=== PATIENT | female | born 1995 | race Caucasian/White ===

== ENCOUNTER 2017-02-23 18:50 | Emergency (ER) | payer MEDICAID, OTHER ==
[~2017-02-23] VITALS: Ht 182.9 cm; Wt 120.0 kg
[~2017-02-23 18:50] MED LIST: METR-1 PO
[2017-02-23 18:53] VITALS: BP 116/66; PULSE 88; RESP 14; TEMP 98.7; O2SAT 95
[2017-02-23] MEDS ORDERED: SODIUM CHLOR 0.9% 1000 ML INJ 1,000 ML IV SCH (20:14)
[2017-02-23] MEDS ORDERED: ONDANSETRON HCL 4 MG/2 ML VIAL IVP ONE (20:15)
[2017-02-23] MEDS ORDERED: SODIUM CHLOR 0.9% 1000 ML INJ 1,000 ML IV ONE (20:15)
[2017-02-23] MEDS ORDERED: SODIUM CHLORIDE 0.9% FLUSH 10 ML FLUSH IV FLUSH PRN (20:15)
[2017-02-23] MEDS ORDERED: FAMOTIDINE 20 MG/2 ML VIAL IV PUSH ONE (20:15)
--- NOTE | 2017-02-23 20:31 | PD ---
HPI Chief Complaint: GI Complaint Time Seen by Provider: 20:12 Travel History International Travel<30 days: No Contact w/Intl Traveler<30days: No Traveled to known affect area: No History of Present Illness HPI Patient is a 21-year-old female who presents to emergency room for evaluation of nausea vomiting and diarrhea. She reports that she has been symptomatic for the past 3 days, she reports that she has not been able to keep anything down. Patient reports no sick contacts, denies any recent travels. Patient denies any fever or chills. Patient reports that her abdomen feels crampy, reports no pain at this time. PFSH Past Medical History Medical History: Denies Significant Hx Diminished Hearing: No ?: Not LMP: implant in [facility] states was 4 years ago Past Surgical History Surgical History: No Previous Surgery Social History Alcohol Use: No Tobacco Use: No Substance Use: No Allergies-Medications (Allergen,Severity, Reaction): Coded Allergies: No Known Allergies (Verified Allergy, Unknown, 02/23/17) Reported Meds & Prescriptions Reported Meds & Active Scripts Active Flagyl (Metronidazole) 500 Mg Tab 500 Mg PO BID 7 Days Review of Systems General / Constitutional: No: Fever Eyes: No: Visual changes HENT: No: Headaches Cardiovascular: No: Chest Pain or Discomfort Respiratory: No: Shortness of Breath Gastrointestinal: Positive: Nausea, Vomiting, Diarrhea, No: Abdominal Pain Genitourinary: No: Dysuria Musculoskeletal: No: Pain Skin: No Rash Neurologic: No: Weakness Psychiatric: No: Depression Endocrine: No: Polydipsia Hematologic/Lymphatic: No: Easy Bruising Physical Exam Narrative GENERAL: Mild distress SKIN: Focused skin assessment warm/dry. HEAD: Atraumatic. Normocephalic. EYES: Pupils equal and round. No scleral icterus. No injection or drainage. ENT: No nasal bleeding or discharge. Mucous membranes pink and moist. NECK: Trachea midline. No JVD. CARDIOVASCULAR: Regular rate and rhythm. No murmur appreciated. RESPIRATORY: No accessory muscle use. Clear to auscultation. Breath sounds equal bilaterally. GASTROINTESTINAL: Abdomen soft, non-tender, nondistended. Hepatic and splenic margins not palpable. MUSCULOSKELETAL: No obvious deformities. No clubbing. No cyanosis. No edema. NEUROLOGICAL: Awake and alert. No obvious cranial nerve deficits. Motor grossly within normal limits. Normal speech. PSYCHIATRIC: Appropriate mood and affect; insight and judgment normal. Data Data Last Documented VS Vital Signs Date Time Temp Pulse Resp B/P (MAP) Pulse Ox O2 Delivery O2 Flow Rate FiO2 02/23/17 21:08 18 99 Room Air 02/23/17 18:53 98.7 88 Orders Orders Complete Blood Count With Diff (02/23/17 20:14) Comprehensive Metabolic Panel (02/23/17 20:14) Lipase (02/23/17 20:14) Prothrombin Time / Inr (Pt) (02/23/17 20:14) Act Partial Throm Time (Ptt) (02/23/17 20:14) Urinalysis - C+S If Indicated (02/23/17 20:14) Iv Access Insert/Monitor (02/23/17 20:14) Ecg Monitoring (02/23/17 20:14) Oximetry (02/23/17 20:14) Ondansetron Inj (Zofran Inj) (02/23/17 20:15) Sodium Chlor 0.9% 1000 Ml Inj (Ns 1000 M (02/23/17 20:14) Sodium Chloride 0.9% Flush (Ns Flush) (02/23/17 20:15) Famotidine Inj (Pepcid Inj) (02/23/17 20:15) Ed Urine Pregnancytest Poc (02/23/17 20:14) Sodium Chlor 0.9% 1000 Ml Inj (Ns 1000 M (02/23/17 20:15) Labs Laboratory Tests Test 02/23/17 19:30 02/23/17 21:39 White Blood Count 11.0 TH/MM3 Red Blood Count 4.78 MIL/MM3 Hemoglobin 13.7 GM/DL Hematocrit 41.0 % Mean Corpuscular Volume 85.9 FL Mean Corpuscular Hemoglobin 28.6 PG Mean Corpuscular Hemoglobin Concent 33.3 % Red Cell Distribution Width 14.1 % Platelet Count 205 TH/MM3 Mean Platelet Volume 8.9 FL Neutrophils (%) (Auto) 62.5 % Lymphocytes (%) (Auto) 27.5 % Monocytes (%) (Auto) 5.0 % Eosinophils (%) (Auto) 4.5 % Basophils (%) (Auto) 0.5 % Neutrophils # (Auto) 6.9 TH/MM3 Lymphocytes # (Auto) 3.0 TH/MM3 Monocytes # (Auto) 0.6 TH/MM3 Eosinophils # (Auto) 0.5 TH/MM3 Basophils # (Auto) 0.1 TH/MM3 CBC Comment DIFF FINAL Differential Comment Prothrombin Time 10.9 SEC Prothromb Time International Ratio 1.1 RATIO Activated Partial Thromboplast Time 29.0 SEC Blood Urea Nitrogen 13 MG/DL Creatinine 0.76 MG/DL Random Glucose 90 MG/DL Total Protein 7.2 GM/DL Albumin 3.6 GM/DL Calcium Level 8.9 MG/DL Alkaline Phosphatase 120 U/L Aspartate Amino Transf (AST/SGOT) 59 U/L Alanine Aminotransferase (ALT/SGPT) 88 U/L Total Bilirubin 0.4 MG/DL Sodium Level 140 MEQ/L Potassium Level 4.0 MEQ/L Chloride Level 106 MEQ/L Carbon Dioxide Level 28.3 MEQ/L Anion Gap 6 MEQ/L Estimat Glomerular Filtration Rate 97 ML/MIN Lipase 107 U/L Urine Color YELLOW Urine Turbidity CLEAR Urine pH 6.0 Urine Specific [place] 1.033 Urine Protein TRACE mg/dL Urine Glucose (UA) NEG mg/dL Urine Ketones 10 mg/dL Urine Occult Blood NEG Urine Nitrite NEG Urine Bilirubin NEG Urine Urobilinogen 2.0 MG/DL Urine Leukocyte Esterase SMALL Urine RBC LESS THAN 1 /hpf Urine WBC 2 /hpf Urine Squamous Epithelial Cells 4 /hpf Urine Bacteria OCC /hpf Urine Mucus FEW /lpf Microscopic Urinalysis Comment CULT NOT INDICATED MDM Medical Decision Making Medical Screen Exam Complete: Yes Emergency Medical Condition: Yes Medical Record Reviewed: Yes Interpretation(s) Vital Signs Date Time Temp Pulse Resp B/P (MAP) Pulse Ox O2 Delivery O2 Flow Rate FiO2 02/23/17 18:53 98.7 88 14 116/66 (83) 95 Differential Diagnosis Gastritis, gastroenteritis, viral syndrome Narrative Course During the course of the patients emergency department visit, the patients history, examination, and differential diagnosis were reviewed with the patient. The patient was placed on a cardiac cath tech with oximetry and frequent blood pressure monitoring. The patient had a 20-gauge IV access obtained and blood work sent for analysis. The patient was initially provided IV fluids as well as Zofran The patients laboratory studies were reviewed and remarkable for: Laboratory Tests Test 02/23/17 19:30 02/23/17 21:39 White Blood Count 11.0 TH/MM3 (4.0-11.0) Red Blood Count 4.78 MIL/MM3 (4.00-5.30) Hemoglobin 13.7 GM/DL (11.6-15.3) Hematocrit 41.0 % (35.0-46.0) Mean Corpuscular Volume 85.9 FL (80.0-100.0) Mean Corpuscular Hemoglobin 28.6 PG (27.0-34.0) Mean Corpuscular Hemoglobin Concent 33.3 % (32.0-36.0) Red Cell Distribution Width 14.1 % (11.6-17.2) Platelet Count 205 TH/MM3 (150-450) Mean Platelet Volume 8.9 FL (7.0-11.0) Neutrophils (%) (Auto) 62.5 % (16.0-70.0) Lymphocytes (%) (Auto) 27.5 % (9.0-44.0) Monocytes (%) (Auto) 5.0 % (0.0-8.0) Eosinophils (%) (Auto) 4.5 % (0.0-4.0) Basophils (%) (Auto) 0.5 % (0.0-2.0) Neutrophils # (Auto) 6.9 TH/MM3 (1.8-7.7) Lymphocytes # (Auto) 3.0 TH/MM3 (1.0-4.8) Monocytes # (Auto) 0.6 TH/MM3 (0-0.9) Eosinophils # (Auto) 0.5 TH/MM3 (0-0.4) Basophils # (Auto) 0.1 TH/MM3 (0-0.2) CBC Comment DIFF FINAL Differential Comment Prothrombin Time 10.9 SEC (9.8-11.6) Prothromb Time International Ratio 1.1 RATIO Activated Partial Thromboplast Time 29.0 SEC (24.3-30.1) Blood Urea Nitrogen 13 MG/DL (7-18) Creatinine 0.76 MG/DL (0.50-1.00) Random Glucose 90 MG/DL (74-106) Total Protein 7.2 GM/DL (6.4-8.2) Albumin 3.6 GM/DL (3.4-5.0) Calcium Level 8.9 MG/DL (8.5-10.1) Alkaline Phosphatase 120 U/L (45-117) Aspartate Amino Transf (AST/SGOT) 59 U/L (16-38) Alanine Aminotransferase (ALT/SGPT) 88 U/L (9-42) Total Bilirubin 0.4 MG/DL (0.2-1.0) Sodium Level 140 MEQ/L (136-145) Potassium Level 4.0 MEQ/L (3.5-5.1) Chloride Level 106 MEQ/L (98-107) Carbon Dioxide Level 28.3 MEQ/L (21.0-32.0) Anion Gap 6 MEQ/L (5-15) Estimat Glomerular Filtration Rate 97 ML/MIN (>89) Lipase 107 U/L (73-393) Urine Color YELLOW (YELLW/STRAW) Urine Turbidity CLEAR (CLEAR) Urine pH 6.0 (5.0-8.5) Urine Specific [place] 1.033 (1.002-1.035) Urine Protein TRACE mg/dL (NEG-TRACE) Urine Glucose (UA) NEG mg/dL (NEG) Urine Ketones 10 mg/dL (NEG) Urine Occult Blood NEG (NEG) Urine Nitrite NEG (NEG) Urine Bilirubin NEG (NEG) Urine Urobilinogen 2.0 MG/DL (LESS THAN Urine Leukocyte Esterase SMALL (NEG) Urine RBC LESS THAN 1 /hpf (0-3) Urine WBC 2 /hpf (0-5) Urine Squamous Epithelial Cells 4 /hpf (0-5) Urine Bacteria OCC /hpf (NONE) Urine Mucus FEW /lpf (OCC) Microscopic Urinalysis Comment CULT NOT INDICATED Patient re-evaluated, patient feeling much better at this time. Abdomen is soft , nontender, nondistended, no peritoneal signs. I reviewed all labs and all studies with patient in detail including all findings, she'll follow-up with her primary care doctor and return to the emergency room as needed. Diagnosis Primary Impression: Nausea vomiting and diarrhea Additional Impression: Transaminitis Patient Instructions: General Instructions Departure Forms: Tests/Procedures, Work Release Enter return to work date: Feb 25, 2017 Additional Instructions: Please provide patient with a copy of their lab work and studies at discharge* * Please follow up with your primary care doctor in 2-3 days Return to the ER if symptoms worsen or progress Return to the ER as needed Please eat a bland diet for the next few days Med/Other Pt SpecificInfo: Prescription(s) given Scripts Ondansetron (Zofran) 4 Mg Tab 4 MG PO Q6HR Y for NAUSEA OR VOMITING, #20 TAB 0 Refills Prov: Portia Rossi DO 02/24/17 Disposition: 01 DISCHARGE HOME Condition: Stable Portia Rossi DO Feb 23, 2017 20:30
[2017-02-23 21:08] VITALS: RESP 18; O2SAT 99
[2017-02-23 21:46] LABS: AUTOMATED NEUTROPHIL # 6.9 TH/MM3 (1.8-7.7); BASOPHIL # 0.1 TH/MM3 (0-0.2); BASOPHIL % 0.5 % (0.0-2.0); EOSINOPHIL # 0.5 TH/MM3 (0-0.4); EOSINOPHIL % 4.5 % (0.0-4.0); HEMO FLAGS DIFF FINAL; LYMPH % 27.5 % (9.0-44.0); MEAN CELL VOLUME 85.9 FL (80.0-100.0); MEAN CORPUSCULAR HEMOGLOBIN 28.6 PG (27.0-34.0); MEAN CORPUSCULAR HGB CONC 33.3 % (32.0-36.0); NEUT % 62.5 % (16.0-70.0); PLATELET COUNT 205 TH/MM3 (150-450); RED BLOOD COUNT 4.78 MIL/MM3 (4.00-5.30); RED CELL DISTRIBUTION WIDTH 14.1 % (11.6-17.2)
[2017-02-23 21:56] LABS: INTERNATIONAL NORMALIZED RATIO 1.1 RATIO; PROTHROMBIN TIME - PATIENT 10.9 SEC (9.8-11.6)
[2017-02-23 22:08] LABS: BACTERIA, URINE OCC /hpf; BLOOD, URINE NEG (NEG); COMMENT (UR) CULT NOT INDICATED; CULTURE IF INDICATED CULT NOT INDICATED; GLUCOSE,URINE NEG (NEG); KETONE, URINE 10 mg/dL (NEG); MUCUS URINE FEW /lpf (OCC); NITRITE,URINE NEG (NEG); SQUAMOUS EPITHELIAL CELL URINE 4 /hpf (0-5); URINE COLOR YELLOW (YELLW/STRAW)
[2017-02-23 22:08] LABS: ALKALINE PHOSPHATASE 120 U/L (45-117); ALT (GPT) 88 U/L (9-42); TOTAL BILIRUBIN ADULT 0.4 MG/DL (0.2-1.0)
[2017-02-23 22:27] LABS: ANION GAP 6 MEQ/L (5-15); AST (GOT) 59 U/L (16-38); BICARBONATE 28.3 MEQ/L (21.0-32.0); BLOOD UREA NITROGEN 13 MG/DL (7-18); CHLORIDE 106 MEQ/L (98-107); GLOMERULAR FILTRATION RATE 97 ML/MIN (>89); SODIUM (NA) 140 MEQ/L (136-145)
[2017-02-23 22:30] VITALS: BP 117/71; PULSE 71; RESP 18; O2SAT 99
[2017-02-24] MEDS ORDERED: ZOFR4TAB PO (00:18)
== END 2017-02-24 00:32 | disposition home or self-care (01) ==
LOC: NEPD 18:50
DX: R11.2 Nausea with vomiting, unspecified (principal); R19.7 Diarrhea, unspecified; R74.0 Nonspecific elevation of levels of transaminase and lactic acid dehydrogenase [LDH]
CPT/HCPCS: 80053; 81001; 83690; 84703; 85025; 85610; 85730; 96361; 96374; 96375; 99284; J2405; J7030

== ENCOUNTER 2017-03-12 11:26 | Emergency (ER) | payer OTHER ==
[~2017-03-12] VITALS: Ht 182.9 cm; Wt 113.5 kg
[~2017-03-12 11:26] MED LIST changes: +ZOFR4TAB PO
[2017-03-12 11:27] VITALS: BP 135/72; PULSE 123; RESP 16; TEMP 98; O2SAT 100
[2017-03-12] MEDS ORDERED: WELLTAB39 PO (11:41)
[2017-03-12] MEDS ORDERED: TRAZ100T10 PO (11:41)
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
[2017-03-12 13:07] VITALS: PULSE 82; O2SAT 100
[2017-03-12] MEDS ORDERED: IBUP1TAB7 PO (13:15)
[2017-03-12] MEDS ORDERED: IBUPROFEN 800 MG TAB PO ONE (13:15)
== END 2017-03-12 13:40 | disposition home or self-care (01) ==
LOC: NEPD 11:26
DX: S60.221A Contusion of right hand, initial encounter (principal); N94.6 Dysmenorrhea, unspecified; Y04.2XXA Assault by strike against or bumped into by another person, initial encounter; Z79.899 Other long term (current) drug therapy; Z72.0 Tobacco use; F31.9 Bipolar disorder, unspecified
CPT/HCPCS: 73130; 84703; 99283